=== PATIENT | female | born 1955 | race Caucasian/White ===

== ENCOUNTER 2017-01-18 08:59 | Outpatient (CLI) | payer MEDICARE, OTHER | END 2017-01-18 09:00 | LOC: POD 08:59 | PROVIDERS: ATTEND Podiatrist Public Medicine | DX: L60.0 Ingrowing nail (principal); M20.42 Other hammer toe(s) (acquired), left foot; M20.41 Other hammer toe(s) (acquired), right foot; M79.671 Pain in right foot; M79.672 Pain in left foot; B35.1 Tinea unguium | CPT/HCPCS: 11721; G0463 ==

== ENCOUNTER 2017-02-06 09:18 | Day surgery (SDC) | payer MEDICARE, OTHER ==
[~2017-02-06 09:18] MED LIST: LACTATED RINGERS 1,000 ML IV.SOLN IV ONE; LIDOCAINE HCL/PF 2% 100 MG/5 ML VIAL IJ ONE; PROPOFOL 500 MG/50 ML VIAL IV ONE; SALINE FLUSH 10 ML DISP.SYRIN IVF ONE
--- NOTE | 2017-02-06 14:02 | GI Report ---
REFERRING PHYSICIAN: Dr. Jarrod Amador [employer]ICATION: Mika Amador MD PROCEDURE MEDICATION: Propofol as per anesthesia. INDICATIONS: This 61-year-old woman is referred for a screening colonoscopy. She also has trouble with constipation. She is on a number of psychotropic medications for schizophrenia. She denies blood in her stool. 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 PROCEDURE PERFORMED: Colonoscopy and biopsy and polypectomy. PROCEDURE: An Olympus video colonoscope was advanced to the rectum. A slightly atonic redundant colon but we were able to get to the cecum. The appendiceal orifice was normal. The terminal ileum was normal. On slow withdrawal, the cecum, ascending colon, and transverse colon with no obvious intraluminal lesions were noted. The descending colon and sigmoid had some redundancy, no obvious intraluminal lesions were noted. In the rectum, there was a 3 mm flat polyp cold biopsy removed with biopsy forceps. Retroflexion of the rectum, otherwise , unremarkable. Patient tolerated the procedure well. FINDINGS: 1. A very atonic redundant colon. 2. A small rectal polyp, biopsied and removed. RECOMMENDATIONS: 1. Would increase fiber, like Benefiber or Metamucil or add MiraLAX. She is on a number of medications that tend to increase constipation. 2. Pending the pathology of the polyp, she may need her colon re-looked at again between 5 and 10 years. cc: Dr. Jarrod GRIFFIN
== END 2017-02-06 09:20 ==
LOC: OPSURG 09:18
PROVIDERS: ATTEND Internal Medicine Gastroenterology
DX: Z12.11 Encounter for screening for malignant neoplasm of colon (principal); K62.1 Rectal polyp; K59.00 Constipation, unspecified; K59.8 Other specified functional intestinal disorders; G47.30 Sleep apnea, unspecified; Z79.899 Other long term (current) drug therapy
CPT/HCPCS: 88305; J2001; J2704; J7120; 45380; S1016

== ENCOUNTER 2017-04-26 08:23 | Outpatient (CLI) | payer MEDICARE, OTHER | END 2017-04-26 08:24 | LOC: POD 08:23 | PROVIDERS: ATTEND Podiatrist Public Medicine | DX: B35.1 Tinea unguium (principal); L60.0 Ingrowing nail; M79.671 Pain in right foot; M79.672 Pain in left foot; M20.41 Other hammer toe(s) (acquired), right foot; M20.42 Other hammer toe(s) (acquired), left foot | CPT/HCPCS: 11721; G0463 ==

== ENCOUNTER 2017-04-28 13:19 | Outpatient (CLI) | payer MEDICARE, OTHER ==
--- NOTE | 2017-04-28 17:34 | Diagnostic Imaging Report ---
SHANE ARCE [facility] [address] [facility] [address] [address] Report Submission Date: Apr 28, 2017 1:58:52 PM BOX LINER Patient Study Name: RENA BREWER Date: Apr 28, 2017 1:28:34 PM BOX LINER Modality Type: CR Gender: F Description: SHOULDER : 53 Institution: [facility] Physician: SHANE ARCE Examination: Plain film right shoulder History: RT SHOULDER, ONGOING PAIN IN RT SHOULDER, PT STATES SHE CAUGHT HERSELF FROM FALLING 6 YEARS AGO AND HAS BEEN HAVING PAIN SINCE, NO KNOWN RECENT INJURY (Hx) / RIGHT SHOULDER PAIN (DICOM Hx) / RIGHT SHOULDER PAIN (Pt comments) Comparison exams: None provided Findings: 3 views of the right shoulder demonstrate humeral head osteophytes and articular degenerative changes. No evidence for fracture or dislocation. Acromioclavicular joint degenerative spurring. No soft tissue abnormality. Impression: Articular degenerative changes. No acute appearing osseous process. If suspect soft tissue injury, consider obtaining MRI to further evaluate. Electronically signed on Apr 28, 2017 1:58:52 PM BOX LINER by: Abhi GRIFFIN
== END 2017-04-28 13:20 ==
LOC: RAD 13:19
PROVIDERS: ATTEND Family Medicine
DX: M25.511 Pain in right shoulder (principal)
CPT/HCPCS: 73030

== ENCOUNTER 2017-08-09 08:43 | Outpatient (CLI) | payer MEDICARE, OTHER | END 2017-08-09 08:44 | LOC: POD 08:43 | PROVIDERS: ATTEND Podiatrist Public Medicine | DX: B35.1 Tinea unguium (principal); L60.0 Ingrowing nail; M79.671 Pain in right foot; M79.672 Pain in left foot; M20.41 Other hammer toe(s) (acquired), right foot; M20.42 Other hammer toe(s) (acquired), left foot | CPT/HCPCS: 11721; G0463 ==

== ENCOUNTER 2018-12-11 05:45 | Outpatient (CLI) | payer MEDICARE, OTHER ==
[2018-12-11 09:08] LABS: eGFR (Non-African) > 60
== END 2018-12-11 05:55 ==
LOC: LAB 05:45
PROVIDERS: ATTEND Family Medicine
DX: I10 Essential (primary) hypertension (principal); F25.9 Schizoaffective disorder, unspecified
CPT/HCPCS: 36415; 80053

== ENCOUNTER 2019-03-11 23:19 | Outpatient (CLI) | payer MEDICARE, OTHER | END 2019-03-11 23:24 | LOC: LAB 23:19 | PROVIDERS: ATTEND Family Medicine | DX: G40.009 Localization-related (focal) (partial) idiopathic epilepsy and epileptic syndromes with seizures of localized onset, not intractable, without status epilepticus (principal); E03.9 Hypothyroidism, unspecified | CPT/HCPCS: 36415; 84443; P9604 ==

== ENCOUNTER 2019-03-20 15:19 | Outpatient (CLI) | payer MEDICARE, OTHER ==
--- NOTE | 2019-03-20 17:39 | Diagnostic Imaging Report ---
PATIENT MR#: [id number] PATIENT PATIENT NAME: RENA BREWER DATE OF : 1955 REFERRING PHYSICIAN: Jarrod Amador EXAM DATE: 03/20/2019 ACCESSION NUMBER: [id number] EXAM DESCRIPTION: RIBS UNILAT 2 VIEWS HISTORY: SEVERE RIB PAIN. COMPARISON: No relevant comparison is available at the time of interpretation. RIGHT RIB XRAY, 2 Views: Right lung: Clear, without pneumothorax. Right ribs: The bones are diffusely osteopenic, which limits evaluation for acute nondisplaced fractu res. However, there is cortical irregularity of the posterolateral 7th rib which may indicate acute or chronic frac ture. Right shoulder: Right shoulder reverse arthroplasty. Soft tissues: No retained foreign bodies. IMPRESSION: Cortical irregularity of the posterolateral right 7th rib which may indicate acute or chr onic fracture. Correlate with point tenderness. Alternatively, chest CT is more sensitive for detection of subtle fr actures in osteopenic patients. Read by: Dr. Frankie Flower Transcribed by: Frankie Flower Transcribed Date: 03/20/2019 5:37:59 PM Electronically signed by: Dr. Frankie Flower Date signed: 03/20/2019 5:38:40 PM
== END 2019-03-20 15:29 ==
LOC: RAD 15:19
PROVIDERS: ATTEND Family Medicine
DX: R07.81 Pleurodynia (principal)

== ENCOUNTER 2019-03-22 09:09 | Outpatient (CLI) | payer MEDICARE, OTHER ==
[2019-03-22 09:47] LABS: eGFR (Non-African) > 60
--- NOTE | 2019-03-22 16:43 | Diagnostic Imaging Report ---
PATIENT MR#: [id number] PATIENT PATIENT NAME: RENA BREWER DATE OF : 1955 REFERRING PHYSICIAN: Jarrod Amador EXAM DATE: 03/22/2019 ACCESSION NUMBER: [id number] EXAM DESCRIPTION: CT CHEST W/ CONTRAST CLINICAL HISTORY: FELL AND HAVING PAIN ON RT SIDE TECHNIQUE: CT chest with IV contrast, 94 mL Omnipaque 350. COMPARISON: Chest radiograph March 20, 2019 demonstrating subtle irregularity of the right 7th rib. CT CHEST WITH CONTRAST: Pulmonary arteries: The central pulmonary arteries are patent. The peripheral pulmonary arteries are not well evaluated due to contrast timing. Lungs: Moderate bilateral atelectasis. No pneumothorax, infiltrate, masses or effusion. Heart: Normal size. No significant effusion. Aorta: Normal caliber, without aneurysm or dissection. Mediastinum and starr: No lymphadenopathy. Esophagus: Small hiatal hernia noted, with mild thickening of the esophageal wall. Bony thorax: Again seen is mild cortical thickening of the right 7th rib (axial image 37), without co rtical lucency, consistent with remote healed fracture. No acute rib fractures are seen. Mid thoracic disc spondylosi s. Right shoulder arthroplasty. Limited upper abdomen: Hepatomegaly with fatty infiltration. Splenomegaly. Cholecystectomy. IMPRESSION: 1. Findings are consistent with remote, healed fracture of the right 7th rib. No acute displaced rib fractures are present. 2. Bilateral pulmonary atelectasis. 3. Small hiatal hernia with mild thickening of the distal esophageal wall, consistent with mild esoph agitis. 4. Hepatosplenomegaly. Read by: Dr. Frankie Flower Transcribed by: Frankie Flower Transcribed Date: 03/22/2019 4:42:18 PM Electronically signed by: Dr. Frankie Flower Date signed: 03/22/2019 4:42:18 PM
== END 2019-03-22 09:19 ==
LOC: RAD 09:09
PROVIDERS: ATTEND Family Medicine
DX: G89.29 Other chronic pain (principal); R07.81 Pleurodynia
CPT/HCPCS: 36415; 71260; 82565; Q9967